=== PATIENT | female | born 1950 | race Two or more races ===

== ENCOUNTER 2022-06-30 10:10 | Emergency (ER) | payer OTHER ==
[~2022-06-30] VITALS: Ht 157.5 cm; Wt 58.1 kg
[2022-06-30] MEDS ORDERED: AMLODIPINE-OLM1 EACH PO (10:27)
[2022-06-30] MEDS ORDERED: EZALLOR SPRINKL20 MG PO (10:28)
[2022-06-30] MEDS ORDERED: ZETIA10 MG PO (10:28)
[2022-06-30] MEDS ORDERED: CHILDREN'S ASPI81 MG PO (10:28)
== END 2022-06-30 13:06 | disposition home or self-care (01) ==
LOC: ER 10:10
DX: U07.1 COVID-19 (principal); I10 Essential (primary) hypertension; Z88.0 Allergy status to penicillin; Z88.8 Allergy status to other drugs, medicaments and biological substances